=== PATIENT | male | born 1955 | race Caucasian/White ===

== ENCOUNTER 2016-03-11 08:14 | Outpatient (RCR) | payer BC ==
[2016-07-16] VITALS (12 sets, daily range): BP systolic 86–98; BP diastolic 44–51
[2016-07-16] MEDS ORDERED: SODIUM CHLORIDE FLUSH ONE (19:38)
[2016-07-16] MEDS ORDERED: SODIUM CHLORIDE 250 ML ONE (19:38)
--- NOTE | 2016-07-16 19:50 | NUR ---
Blood product started at this time. Initial rate 100 ml/hr. Verified by Da Mustafa RN. Pt tolerating well; resting quietly with eyes closed.
--- NOTE | 2016-07-16 20:01 | NUR ---
Transfusion rate increased to 150 ml/hr. Pt cont tolerating well.
--- NOTE | 2016-07-16 22:00 | NUR ---
Blood transfusion finished at this time. Pt tolerates well.
[2016-07-16] MEDS ORDERED: ACETAMINOPHEN 500 MG TAB (TYLENOL) PO PRN (22:15)
--- NOTE | 2016-07-16 22:15 | NUR ---
Pt requests tylenol for pain. Dr Lee notified; orders received for 500-1000mg tylenol PO q4h PRN.
--- NOTE | 2016-07-16 22:16 | NUR ---
Second unit of blood initiated at this time.
--- NOTE | 2016-07-16 22:26 | NUR ---
Pt cont to tolerate infusion well. Rate increased to 150 ml/hr.
[2016-07-17 00:11] VITALS: BP 104/55
--- NOTE | 2016-07-17 00:20 | NUR ---
Blood finished at this time. Discharge instructions given to pt.
[2016-07-17 00:30] VITALS: BP 103/55
--- NOTE | 2016-07-17 00:30 | NUR ---
SL discontinued; catheter tip intact. Pt walked downstairs by this nurse.
== END 2016-10-14 | disposition home or self-care (01) ==
LOC: EUOP 07-16 17:15 → ICU 07-16 18:01 → MED/SURG 07-16 18:46 → EUOP 07-17 00:30
PROVIDERS: ATTEND Family Medicine
DX: D64.9 Anemia, unspecified (principal)
CPT/HCPCS: 36415; 36430; 85014; 85018; 86850; 86900; 86901; 86920; J7050; P9016

== ENCOUNTER → 2016-09-15 | Outpatient (CLI) | payer BC ==
[~2016-09-15] MED LIST: ALLO100T PO; AMIO200T2 PO; ASPI325T4 PO; CALC-51 PO; CALC200T5 PO; CALC600T19 PO; CHOL40002 PO; FURO40TA4; FURO80TA62 PO; IRON1CAP21 PO; LEVO112T4 PO; LEVO125T70 PO; LEVO137T2 PO; LEVO150T6 PO; LSNP20T PO; LVT.15T PO; LVT.1T PO; METO-272 PO; OMEP20CA12 PO; OMEP40CA36 PO; OXYC1TAB87 PO; POTA10CA43 PO; POTA10TA10 PO; SIMV20TA PO; WARF6TAB PO
== END ==
LOC: LAB 15:51
PROVIDERS: ATTEND Internal Medicine Gastroenterology
DX: Z53.8 Procedure and treatment not carried out for other reasons (principal)
CPT/HCPCS: 36415; 85014; 85018

== ENCOUNTER 2016-09-16 12:41 | Outpatient (RCR) | payer BC ==
[2016-09-16] VITALS (16 sets, daily range): BP systolic 90–131; BP diastolic 40–57
--- NOTE | 2016-09-16 12:50 | NUR ---
Patient arrives amb accompaied by lab staff. alert and orietned x4. Skin w/p/d. Resp regular and unlabored.
[2016-09-16] MEDS ORDERED: SODIUM CHLORIDE FLUSH 10 ML ONE (12:54)
[2016-09-16] MEDS ORDERED: NS 250 ML (IVPB) BAG IV SCH (13:15)
[2016-09-16] MEDS ORDERED: SODIUM CHLORIDE FLUSH 10 ML SYR IV PRN (13:15)
[2016-09-16] MEDS ORDERED: ACETAMINOPHEN 325 MG TAB (TYLENOL) PO SCH (13:15)
[2016-09-16] MEDS ORDERED: SODIUM CHLORIDE FLUSH 3 ML SYR IV PRN (13:15)
[2016-09-16] MEDS ORDERED: diphenhydrAMINE 25 MG (BENADRYL) TABLET PO SCH (13:15)
--- NOTE | 2016-09-16 14:05 | NUR ---
Unit 1 of blood started.
--- NOTE | 2016-09-16 15:47 | NUR ---
Unit 1 of blood completed.
--- NOTE | 2016-09-16 16:04 | NUR ---
unit 2 of blood started.
--- NOTE | 2016-09-16 16:20 | NUR ---
IV RATE INCREASED TO 200 ML/HR.
--- NOTE | 2016-09-16 17:50 | NUR ---
DISMISSED TO HOME. AMB UPON DISMISSAL. ALERT AND ORIENTED X4. SKIN W/P/D. RESP UNLABORED AND REGULAR.
== END 2016-09-16 17:50 | disposition home or self-care (01) ==
LOC: EUOP 12:41 → ICU 12:42 → EUOP 17:50
PROVIDERS: ATTEND Internal Medicine Hematology & Oncology
DX: D64.9 Anemia, unspecified (principal)
CPT/HCPCS: 36415; 36430; 85014; 85018; 86850; 86900; 86901; 86920; J7050; P9040

== ENCOUNTER → 2016-09-22 | Outpatient (CLI) | payer BC | LOC: LAB 15:59 | PROVIDERS: ATTEND Internal Medicine Gastroenterology | DX: K92.2 Gastrointestinal hemorrhage, unspecified (principal); D62 Acute posthemorrhagic anemia | CPT/HCPCS: 36415; 85014; 85018 ==

== ENCOUNTER → 2016-09-29 | Outpatient (CLI) | payer BC ==
[2016-09-29 21:22] LABS: IRON 37 ug/dL (65-175); UNBOUND IRON CONTENT 326 ug/dl (126-382)
== END ==
LOC: LAB 15:48
PROVIDERS: ATTEND Internal Medicine Gastroenterology
DX: D50.9 Iron deficiency anemia, unspecified (principal); Z87.891 Personal history of nicotine dependence; D62 Acute posthemorrhagic anemia; K92.2 Gastrointestinal hemorrhage, unspecified
CPT/HCPCS: 36415; 82728; 83540; 83550; 85014; 85018

== ENCOUNTER → 2016-10-01 | Outpatient (CLI) | payer BC | LOC: LAB 16:08 | PROVIDERS: ATTEND Internal Medicine Gastroenterology | DX: K92.2 Gastrointestinal hemorrhage, unspecified (principal) | CPT/HCPCS: 36415; 85014; 85018 ==

== ENCOUNTER 2016-10-02 14:24 | Outpatient (RCR) | payer BC ==
[2016-10-02] VITALS (16 sets, daily range): BP systolic 92–123; BP diastolic 43–58
[~2016-10-02] VITALS: Ht 182.9 cm; Wt 140.9 kg
[2016-10-02] MEDS ORDERED: LMX 4 KIT (LIDOCAINE 4% 5 GM TUBE/TRANSPARENT DRESSING) TOP PRN (15:45)
[2016-10-02] MEDS ORDERED: NS 250 ML (IVPB) BAG IV SCH ×2 (15:45→17:50)
[2016-10-02] MEDS ORDERED: diphenhydrAMINE 25 MG (BENADRYL) TABLET PO SCH ×2 (15:45→17:50)
[2016-10-02] MEDS ORDERED: ACETAMINOPHEN 325 MG TAB (TYLENOL) PO SCH ×2 (15:45→17:50)
[2016-10-02] MEDS ORDERED: SODIUM CHLORIDE FLUSH 10 ML SYR IV PRN (15:45)
[2016-10-02] MEDS ORDERED: SODIUM CHLORIDE FLUSH 3 ML SYR IV PRN (15:45)
--- NOTE | 2016-10-02 18:03 | NUR ---
Pt. arrived to 341 at 1738 from admissions via accompanied by this RN. Pt. states he has been intermittently feeling light headed, but is able to stand and transfer himself to the chair without difficulty. Pre-meds of Tylenol and Benadryl have been given - see EMAR. 20g IV started to L hand x1 attempt, flushes well.
--- NOTE | 2016-10-02 18:14 | NUR ---
1st unit irradiated PRBC started at 125ml/hr at this time.
--- NOTE | 2016-10-02 18:33 | NUR ---
Pt. tolerating transfusion well, VSS. Rate increased to 150ml/hr.
--- NOTE | 2016-10-02 19:00 | NUR ---
Assumed care, pt resting in recliner. Denies needs. Reports feeling tired but was tired when he came in. No adverse effects at this time. 1st unit PRBCs infusing at 150cc/hr. IV site without redness or edema. Call light in reach.
--- NOTE | 2016-10-02 20:17 | NUR ---
1st unit complete. Vital signs stable. Pt denies needs.
--- NOTE | 2016-10-02 20:28 | NUR ---
2nd unit PRBCs initiated at 50cc/hr. Will continue to monitor.
--- NOTE | 2016-10-02 20:44 | NUR ---
Pt tolerating transfusion well. Increased rate to 150cc/hr. Pt awake, watching television. Reports feeling fine. Denies needs. Call light in reach.
--- NOTE | 2016-10-02 23:03 | NUR ---
Pt dismissed to home after transfusion completed at 2258. IV site discontinued. Pt states he's ready to go home to bed. Pt reports feeling better. Pt taken out by wheelchair by [employer]. Denied needs.
== END 2016-12-31 | disposition home or self-care (01) ==
LOC: EUOP 14:24 → EDSTATUS 14:24 → ICU 14:24 → EUOP 22:58
PROVIDERS: ATTEND Internal Medicine Hematology & Oncology
DX: D64.9 Anemia, unspecified (principal); D69.6 Thrombocytopenia, unspecified
CPT/HCPCS: 36415; 36430; 85014; 85018; 86850; 86900; 86901; 86920; J7050; P9040

== ENCOUNTER → 2016-10-06 | Outpatient (CLI) | payer BC | LOC: LAB 16:07 | PROVIDERS: ATTEND Internal Medicine Gastroenterology | DX: K92.2 Gastrointestinal hemorrhage, unspecified (principal); D62 Acute posthemorrhagic anemia | CPT/HCPCS: 36415; 85014; 85018 ==

== ENCOUNTER → 2016-10-13 | Outpatient (CLI) | payer BC | LOC: LAB 15:52 | PROVIDERS: ATTEND Internal Medicine Gastroenterology | DX: K92.2 Gastrointestinal hemorrhage, unspecified (principal); D62 Acute posthemorrhagic anemia | CPT/HCPCS: 36415; 85014; 85018 ==

== ENCOUNTER → 2016-10-20 | Outpatient (CLI) | payer BC | LOC: LAB 16:32 | PROVIDERS: ATTEND Internal Medicine Gastroenterology | DX: K92.2 Gastrointestinal hemorrhage, unspecified (principal); D62 Acute posthemorrhagic anemia | CPT/HCPCS: 36415; 85014; 85018 ==

== ENCOUNTER → 2016-10-27 | Outpatient (CLI) | payer BC ==
[2016-10-28 13:27] LABS: IRON 25 ug/dL (65-175); UNBOUND IRON CONTENT 389 ug/dl (126-382)
== END ==
LOC: LAB 15:47
PROVIDERS: ATTEND Internal Medicine Gastroenterology
DX: D62 Acute posthemorrhagic anemia (principal); D50.9 Iron deficiency anemia, unspecified; Z87.891 Personal history of nicotine dependence; K92.2 Gastrointestinal hemorrhage, unspecified
CPT/HCPCS: 36415; 82728; 83540; 83550; 85014; 85018

== ENCOUNTER → 2016-10-30 | Outpatient (CLI) | payer BC | LOC: RAD 07:46 | PROVIDERS: ATTEND Internal Medicine Cardiovascular Disease | DX: I10 Essential (primary) hypertension (principal); I42.9 Cardiomyopathy, unspecified | CPT/HCPCS: 93306 ==

== ENCOUNTER → 2016-11-03 | Outpatient (CLI) | payer BC | LOC: LAB 15:50 | PROVIDERS: ATTEND Internal Medicine Gastroenterology | DX: K92.2 Gastrointestinal hemorrhage, unspecified (principal); D62 Acute posthemorrhagic anemia | CPT/HCPCS: 36415; 85014; 85018 ==

== ENCOUNTER → 2016-11-10 | Outpatient (CLI) | payer BC | LOC: LAB 15:58 | PROVIDERS: ATTEND Internal Medicine Gastroenterology | DX: K92.2 Gastrointestinal hemorrhage, unspecified (principal); D62 Acute posthemorrhagic anemia | CPT/HCPCS: 36415; 85014; 85018 ==

== ENCOUNTER → 2016-11-17 | Outpatient (CLI) | payer BC | LOC: LAB 15:53 | PROVIDERS: ATTEND Internal Medicine Gastroenterology | DX: K92.2 Gastrointestinal hemorrhage, unspecified (principal); D62 Acute posthemorrhagic anemia | CPT/HCPCS: 36415; 85014; 85018 ==

== ENCOUNTER 2016-11-19 10:56 | Outpatient (RCR) | payer BC ==
[2016-11-19] VITALS (10 sets, daily range): BP systolic 98–122; BP diastolic 45–47
--- NOTE | 2016-11-19 18:35 | NUR ---
Admit to room 347 ambulatory
[2016-11-19] MEDS ORDERED: SODIUM CHLORIDE FLUSH 10 ML SYR IV PRN (18:40)
[2016-11-19] MEDS ORDERED: SODIUM CHLORIDE 250 ML IV SCH (18:40)
[2016-11-19] MEDS ORDERED: diphenhydrAMINE 25 MG (BENADRYL) TABLET PO ONE (18:40)
[2016-11-19] MEDS ORDERED: ACETAMINOPHEN 325 MG TAB (TYLENOL) PO ONE (18:40)
--- NOTE | 2016-11-19 18:45 | NUR ---
Tylenol 650 mg po and benadryl 25 mg po as ordered premeds
--- NOTE | 2016-11-19 18:55 | NUR ---
IV start [facility] c 20 G c aseptic technique - NS to infuse @ 100 mL/hr
--- NOTE | 2016-11-19 19:35 | NUR ---
Infusion of irr PRBC's began 1920 @ 100 ml/hr, VS x 5 min x 3, patient with no complaints, resting on bed. Rate increased to 150 ml/hr. Continue to monitor.
--- NOTE | 2016-11-19 21:40 | NUR ---
Unit complete, order for 1 unit. IV removed, patient sat on side of bed, denies any complaints or needs, Discharge Instructions for blood transfusion explained and signed. Patient left ICU ambulatory 2135.
== END 2016-11-19 21:36 | disposition home or self-care (01) ==
LOC: EUOP 10:56 → ICU 18:19 → EUOP 21:36
PROVIDERS: ATTEND Internal Medicine Hematology & Oncology
DX: D46.9 Myelodysplastic syndrome, unspecified (principal); D63.8 Anemia in other chronic diseases classified elsewhere
CPT/HCPCS: 36415; 36430; 85014; 85018; 86850; 86900; 86901; 86920; J7050; P9040

== ENCOUNTER → 2016-11-24 | Outpatient (CLI) | payer BC ==
[2016-11-24 21:46] LABS: IRON 13 ug/dL (65-175); UNBOUND IRON CONTENT 428 ug/dl (126-382)
== END ==
LOC: LAB 15:47
PROVIDERS: ATTEND Internal Medicine Gastroenterology
DX: K92.2 Gastrointestinal hemorrhage, unspecified (principal); D62 Acute posthemorrhagic anemia; Z87.891 Personal history of nicotine dependence
CPT/HCPCS: 36415; 82728; 83540; 83550; 85014; 85018

== ENCOUNTER → 2016-12-01 | Outpatient (CLI) | payer BC | LOC: LAB 15:46 | PROVIDERS: ATTEND Internal Medicine Gastroenterology | DX: K92.2 Gastrointestinal hemorrhage, unspecified (principal); D62 Acute posthemorrhagic anemia | CPT/HCPCS: 36415; 85014; 85018 ==

== ENCOUNTER → 2016-12-08 | Outpatient (CLI) | payer BC | LOC: LAB 15:47 | PROVIDERS: ATTEND Internal Medicine Gastroenterology | DX: K92.2 Gastrointestinal hemorrhage, unspecified (principal); D62 Acute posthemorrhagic anemia | CPT/HCPCS: 36415; 85014; 85018 ==

== ENCOUNTER → 2016-12-16 | Outpatient (CLI) | payer BC | LOC: LAB 15:54 | PROVIDERS: ATTEND Internal Medicine Gastroenterology | DX: K92.2 Gastrointestinal hemorrhage, unspecified (principal); D62 Acute posthemorrhagic anemia | CPT/HCPCS: 36415; 85014; 85018 ==

== ENCOUNTER → 2016-12-21 | Outpatient (CLI) | payer BC ==
[2016-12-21 16:57] LABS: MEAN PLATELET VOLUME 9.5 FL (6.0-9.5); WHITE BLOOD COUNT 7.01 10^3uL (4.0-11.0)
[2016-12-21 17:01] LABS: MEAN CORPUSCULAR HEMOGLOBIN 24.2 PG (26.0-34.0)
[2016-12-21 17:07] LABS: ALBUMIN 4.4 g/dL (3.4-5.0); CALCULATED IONIZED CALCIUM 3.4 mg/dL (3.8-4.6); TOTAL PROTEIN 7.7 g/dL (6.4-8.5)
[2016-12-24 15:15] LABS: IRON 56 ug/dL (65-175); UNBOUND IRON CONTENT 303 ug/dl (126-382)
== END ==
LOC: LAB 16:41
PROVIDERS: ATTEND Internal Medicine Gastroenterology
DX: D50.9 Iron deficiency anemia, unspecified (principal); Z87.891 Personal history of nicotine dependence; K92.2 Gastrointestinal hemorrhage, unspecified
CPT/HCPCS: 36415; 80053; 82728; 83540; 83550; 85027; 85045

== ENCOUNTER → 2016-12-29 | Outpatient (CLI) | payer BC | LOC: LAB 15:52 | PROVIDERS: ATTEND Internal Medicine Gastroenterology | DX: K92.2 Gastrointestinal hemorrhage, unspecified (principal); D62 Acute posthemorrhagic anemia | CPT/HCPCS: 36415; 85014; 85018 ==

== ENCOUNTER → 2017-01-05 | Outpatient (CLI) | payer BC | LOC: LAB 16:07 | PROVIDERS: ATTEND Internal Medicine Gastroenterology | DX: K92.2 Gastrointestinal hemorrhage, unspecified (principal); D62 Acute posthemorrhagic anemia | CPT/HCPCS: 36415; 85014; 85018 ==

== ENCOUNTER → 2017-01-12 | Outpatient (CLI) | payer BC | LOC: LAB 15:59 | PROVIDERS: ATTEND Internal Medicine Gastroenterology | DX: K92.2 Gastrointestinal hemorrhage, unspecified (principal); D62 Acute posthemorrhagic anemia | CPT/HCPCS: 36415; 85014; 85018 ==

== ENCOUNTER → 2017-01-19 | Outpatient (CLI) | payer BC ==
[2017-01-19 23:32] LABS: IRON 54 ug/dL (65-175); UNBOUND IRON CONTENT 280 ug/dl (126-382)
== END ==
LOC: LAB 16:17
PROVIDERS: ATTEND Internal Medicine Gastroenterology
DX: K92.2 Gastrointestinal hemorrhage, unspecified (principal); D62 Acute posthemorrhagic anemia
CPT/HCPCS: 36415; 82728; 83540; 83550; 85014; 85018

== ENCOUNTER → 2017-01-26 | Outpatient (CLI) | payer BC | LOC: LAB 16:09 | PROVIDERS: ATTEND Internal Medicine Gastroenterology | DX: K92.2 Gastrointestinal hemorrhage, unspecified (principal); D62 Acute posthemorrhagic anemia | CPT/HCPCS: 36415; 85014; 85018 ==

== ENCOUNTER → 2017-02-02 | Outpatient (CLI) | payer BC | LOC: LAB 15:45 | PROVIDERS: ATTEND Internal Medicine Gastroenterology | DX: K92.2 Gastrointestinal hemorrhage, unspecified (principal); D62 Acute posthemorrhagic anemia | CPT/HCPCS: 36415; 85014; 85018 ==

== ENCOUNTER → 2017-02-09 | Outpatient (CLI) | payer BC | LOC: LAB 15:57 | PROVIDERS: ATTEND Internal Medicine Gastroenterology | DX: K92.2 Gastrointestinal hemorrhage, unspecified (principal); D62 Acute posthemorrhagic anemia | CPT/HCPCS: 36415; 85014; 85018 ==